=== PATIENT | female | born 1950 | race Native Hawaiian/Other Pacific Islander ===

== ENCOUNTER 2017-05-30 10:11 | Outpatient (CLI) | payer OTHER, BC ==
[~2017-05-30 10:11] MED LIST: ALLEGRA ALRG180 M1 PO; AMLO2.5T PO; AMOX500C85 PO; ASA LOW STR81 MG PO; CALC667T2 PO; EQ OMEPRAZOLE20 MG OR; FLUT0.05 NAS; FLUTMIS2 INH; FURO40TA93 PO; GLIP10TA55 PO; INDERAL LA80 MG OR; INDERAL XL80 MG PO; LEVO0.1224 PO; LEVO0.1T6 PO; LIPITOR10 MG PO; LOSA50TA PO; MAG OXIDE400 M2 OR; MELO-13 PO; METF500T PO; PAROXETINE10 MG OR; SPIRONOLACT25 MG PO; Z-PAK PO; ZOFRAN8 MG OR
== END 2017-05-30 11:15 | disposition home or self-care (01) ==
LOC: MAMMO 10:11
DX: Z12.31 Encounter for screening mammogram for malignant neoplasm of breast (principal)

== ENCOUNTER 2017-06-18 09:04 | Outpatient (CLI) | payer OTHER, BC | END 2017-06-18 19:30 | disposition home or self-care (01) | LOC: RESP 09:04 | DX: J45.998 Other asthma (principal) ==

== ENCOUNTER 2018-06-03 08:31 | Outpatient (CLI) | payer OTHER, BC | END 2018-06-03 19:26 | disposition home or self-care (01) | LOC: MAMMO 08:31 | DX: Z12.31 Encounter for screening mammogram for malignant neoplasm of breast (principal) ==

== ENCOUNTER 2018-09-04 07:48 | Outpatient (CLI) | payer OTHER, BC ==
[2018-09-04 08:30] LABS: POTASSIUM 3.9 mmol/L (3.6-5.2)
== END 2018-09-04 22:05 | disposition home or self-care (01) ==
LOC: LABW 07:48
PROVIDERS: Physician Assistant
DX: E11.9 Type 2 diabetes mellitus without complications (principal); I10 Essential (primary) hypertension; E83.42 Hypomagnesemia; E55.9 Vitamin D deficiency, unspecified
CPT/HCPCS: 36415; 80053; 82306; 83735; 84439; 84443

== ENCOUNTER 2019-06-05 09:54 | Outpatient (CLI) | payer OTHER, BC | END 2019-06-05 20:33 | disposition home or self-care (01) | LOC: MAMMO 09:54 | DX: Z12.31 Encounter for screening mammogram for malignant neoplasm of breast (principal) ==

== ENCOUNTER 2020-02-03 15:02 | Outpatient (CLI) | payer OTHER, BC | END 2020-02-03 23:56 | disposition home or self-care (01) | LOC: RAD 15:02 | DX: M54.89 Other dorsalgia (principal) ==

== ENCOUNTER 2020-06-22 09:14 | Outpatient (CLI) | payer OTHER, BC | END 2020-06-22 20:15 | disposition home or self-care (01) | LOC: MAMMO 09:14 | DX: Z12.31 Encounter for screening mammogram for malignant neoplasm of breast (principal) ==

== ENCOUNTER 2021-05-18 14:18 | Emergency (ER) | payer BC ==
[~2021-05-18] VITALS: Ht 154.9 cm; Wt 81.6 kg
[2021-05-18 14:26] VITALS: BP 150/76; TEMP 97.7
== END 2021-05-18 15:55 | disposition home or self-care (01) ==
LOC: ED 14:18
DX: M54.89 Other dorsalgia (principal); M25.562 Pain in left knee; W01.0XXA Fall on same level from slipping, tripping and stumbling without subsequent striking against object, initial encounter; Y92.098 Other place in other non-institutional residence as the place of occurrence of the external cause
CPT/HCPCS: 99283

== ENCOUNTER 2021-07-11 08:49 | Outpatient (CLI) | payer BC | END 2021-07-11 21:47 | disposition home or self-care (01) | LOC: MAMMO 08:49 | PROVIDERS: ATTEND Internal Medicine | DX: Z12.31 Encounter for screening mammogram for malignant neoplasm of breast (principal); Z13.820 Encounter for screening for osteoporosis; N95.8 Other specified menopausal and perimenopausal disorders ==

== ENCOUNTER 2022-10-17 09:18 | Outpatient (CLI) | payer BC | END 2022-10-17 21:55 | disposition home or self-care (01) | LOC: MAMMO 09:18 | PROVIDERS: ATTEND Internal Medicine | DX: Z12.31 Encounter for screening mammogram for malignant neoplasm of breast (principal) ==

== ENCOUNTER 2023-03-28 09:24 | Outpatient (CLI) | payer BC | END 2023-03-28 19:05 | disposition home or self-care (01) | LOC: RAD 09:24 | PROVIDERS: ATTEND Internal Medicine | DX: M54.2 Cervicalgia (principal) ==